=== PATIENT | female | born 1960 | race African-American/Black ===

== ENCOUNTER 2017-02-20 14:02 | Emergency (ER) | payer OTHER ==
[~2017-02-20] VITALS: Ht 167.6 cm; Wt 120.0 kg
[2017-02-20] MEDS ORDERED: MAGNESIUM/ALUMINUM HYDROXIDE/SIMETHICONE 30ML UDC PO STA (14:37)
[2017-02-20] MEDS ORDERED: FAMOTIDINE 20MG/2ML VIAL IV STA (14:37)
[2017-02-20] MEDS ORDERED: VISCOUS LIDOCAINE 2% 15 ML UDC PO STA (14:37)
[2017-02-20 14:55] LABS: BASOPHILS % 0.3 % (0.0-2.0); EOSINOPHILS % 1.1 % (0.0-5.0); HEMATOCRIT. 35.7 % (36.0-48.0); HEMOGLOBIN. 12.1 g/dL (12.0-16.0); LYMPHOCYTES % 24.5 % (20.0-50.0); MEAN CORPUSCULAR HEMOGLOBIN 28.2 pg (28.0-32.0); MEAN CORPUSCULAR HGB CONC 33.8 g/dL (31.0-37.0); MEAN CORPUSCULAR VOLUME 83.5 fL (81.0-99.0); MONOCYTES % 5.9 % (2.0-8.0); NEUTROPHILS % 68.2 % (40.0-76.0); PLATELET 199 x1000/uL (130-400); RED BLOOD CELL COUNT 4.28 mill/uL (4.2-5.4); RED CELL DISTRIBUTION WIDTH 13.7 % (11.6-14.6); WHITE BLOOD COUNT 5.1 x1000/uL (4.5-11.0)
[2017-02-20 15:03] LABS: D-DIMER 0.23 mg/L FEU (<0.50); PROTHROMBIN TIME 10.7 sec
[2017-02-20 15:04] LABS: ALBUMIN 3.5 g/dL (3.4-5.0); ANION GAP 13; CALCIUM 9.3 mg/dL (8.5-10.1); CARBON DIOXIDE 27 mEq/L (21-32); CHLORIDE 108 mEq/L (98-107); INDEX HEMOLYSI 1 (1-3); INDEX ICTERIC 1 (1-4); INDEX LIPEMIC 1 (1-3); LIPASE 83 IU/L (73-393); UREA NITROGEN BLOOD 13 mg/dL (7-21)
[2017-02-20 15:06] LABS: ALANINE AMINOTRANSFERASE 13 IU/L (13-61); eGFR > 60 mL/min (>60)
[2017-02-20 15:09] LABS: HCG SCREEN NEGATIVE
[2017-02-20 15:10] LABS: NT PRO B-TYPE NATRIURETIC PEP 98 pg/mL (5-125); TROPONIN I < 0.02 ng/mL (0.00-0.04)
[2017-02-20 15:57] VITALS: BP 124/75
== END 2017-02-20 15:58 | disposition home or self-care (01) ==
LOC: ER 14:20
DX: K21.9 Gastro-esophageal reflux disease without esophagitis (principal); Z90.710 Acquired absence of both cervix and uterus
CPT/HCPCS: 36415; 71010; 80053; 83605; 83690; 83880; 84484; 84703; 85025; 85379; 85610; 93005; 96374; 99285; J3490; Z7610

== ENCOUNTER 2025-07-27 12:04 | Emergency (ER) | payer SELFPAY ==
[~2025-07-27] VITALS: Ht 165.1 cm; Wt 91.0 kg
[2025-07-27 12:10] VITALS: TEMP 36.8; O2SAT 99
[2025-07-27] MEDS: LIDOCAINE 5% PATCH TOP STA (13:12)
[2025-07-27] MEDS: CYCLOBENZAPRINE 10MG TABLET PO ONE (13:15)
[2025-07-27] MEDS: KETOROLAC 30MG/ML VIAL IM ONE (13:15)
[2025-07-27] MEDS ORDERED: KETO10TA2 MT (14:25)
[2025-07-27] MEDS ORDERED: CYCL10TA21 MT (14:25)
[2025-07-27] MEDS ORDERED: LIDO700A30 TP (14:25)
[2025-07-27 14:58] VITALS: BP 148/79; PULSE 69; RESP 20; O2SAT 100
== END 2025-07-27 15:00 | disposition home or self-care (01) ==
LOC: ER 12:06
DX: M51.360 Other intervertebral disc degeneration, lumbar region with discogenic back pain only (principal); M47.819 Spondylosis without myelopathy or radiculopathy, site unspecified; M43.17 Spondylolisthesis, lumbosacral region; M25.562 Pain in left knee; M79.642 Pain in left hand; I10 Essential (primary) hypertension; M43.16 Spondylolisthesis, lumbar region; W01.0XXA Fall on same level from slipping, tripping and stumbling without subsequent striking against object, initial encounter; Y93.01 Activity, walking, marching and hiking; Y92.89 Other specified places as the place of occurrence of the external cause; Y99.0 Civilian activity done for income or pay
CPT/HCPCS: 99283; 72100; 96372; J1885